=== PATIENT | male | born 1975 | race Caucasian/White ===

== ENCOUNTER 2017-08-19 13:35 | Emergency (ER) | payer OTHER ==
[~2017-08-19] VITALS: Ht 175.3 cm; Wt 86.2 kg
[~2017-08-19 13:35] MED LIST: ALPR.5; ASPI325; ASPI81CH PO; ATEN50; CITA20; METO100ER PO; METO25ER; Norco 10-325 T1 EACH PO; OXYACE5T PO; PARO25 PO; RXTRAM50 PO; SULTRIDS PO; [UNRECOGNIZED DRUG - REMARK]
[2017-08-19] MEDS ORDERED: NAPR500 PO (15:04)
[2017-08-19] MEDS ORDERED: Robaxin500 MG PO (15:04)
== END 2017-08-19 15:14 | disposition home or self-care (01) ==
LOC: ER 13:35
DX: S09.90XA Unspecified injury of head, initial encounter (principal); S20.211A Contusion of right front wall of thorax, initial encounter; F17.210 Nicotine dependence, cigarettes, uncomplicated; Z79.899 Other long term (current) drug therapy; Z79.82 Long term (current) use of aspirin; Z79.1 Long term (current) use of non-steroidal anti-inflammatories (NSAID); Y04.2XXA Assault by strike against or bumped into by another person, initial encounter; Y93.72 Activity, wrestling
CPT/HCPCS: 96372; 99283; J1885

== ENCOUNTER 2023-06-22 15:08 | Emergency (ER) | payer OTHER ==
[~2023-06-22] VITALS: Ht 175.3 cm; Wt 108.9 kg
[~2023-06-22 15:08] MED LIST changes: +NAPR500 PO; +Robaxin500 MG PO
[2023-06-22 15:09] VITALS: BP 142/95
[2023-06-22 15:29] LABS: BASOPHILS ABSOLUTE AUTO 0.04 K/mm3 (0.00-0.23); BASOPHILS PERCENT AUTO 0 % (0-2); EOSINOPHILS ABSOLUTE AUTO 0.05 K/mm3 (0.00-0.68); EOSINOPHILS PERCENT AUTO 0 % (0-6); Hematocrit 47.1 % (37.0-53.0); Hemoglobin 15.9 g/dL (13.5-17.5); IMMATURE GRAN ABSOLUTE AUTO 0.04 K/mm3 (0.00-0.10); IMMATURE GRAN PERCENT AUTO 0 % (0-1); LYMPHOCYTES ABSOLUTE AUTO 2.29 K/mm3 (0.84-5.20); LYMPHOCYTES PERCENT AUTO 19 % (21-46); MONOCYTES ABSOLUTE AUTO 0.58 K/mm3 (0.16-1.47); MONOCYTES PERCENT AUTO 5 % (4-13); Mean Corpuscular HGB 29.7 pg (26.0-34.0); Mean Corpuscular HGB Conc 33.8 g/dL (31.5-36.5); Mean Corpuscular Volume 88 fL (80-100); Mean Platelet Volume 8.4 fL (9.1-12.4); NEUTROPHILS ABSOLUTE AUTO 9.16 K/mm3 (1.96-9.15); NEUTROPHILS PERCENT AUTO 75 % (41-73); Platelet Count 331 K/mm3 (150-400); RDW Coefficient Variation 12.8 % (11.7-14.2); Red Blood Cell Count 5.36 M/mm3 (4.30-5.90); White Blood Cell Count 12.16 K/mm3 (4.00-11.30)
[2023-06-22 15:48] LABS: Albumin, Blood 3.7 g/dL (3.4-5.0); Albumin/Globulin Ratio 0.8 (0.8-1.8); Bilirubin, Total 0.5 mg/dL (0.1-1.0); Bun/Creatinine Ratio 16.8 (12.0-20.0); Calcium, Blood 9.4 mg/dL (8.5-10.1); Creatinine, Blood 1.01 mg/dL (0.60-1.20); Globulin, Blood 4.4 g/dL (2.2-4.0); Potassium, Blood 3.9 mmol/L (3.5-5.5); Total Protein, Blood 8.1 g/dL (6.4-8.2)
== END 2023-06-22 16:29 | disposition home or self-care (01) ==
LOC: ER 15:08
PROVIDERS: Student in an Organized Health Care Education/Training Program
DX: R07.89 Other chest pain (principal); I10 Essential (primary) hypertension; Z91.148 Patient's other noncompliance with medication regimen for other reason; F17.210 Nicotine dependence, cigarettes, uncomplicated
CPT/HCPCS: 71046; 80053; 84484; 85025; 99285-25

== ENCOUNTER 2024-07-27 13:31 | Emergency (ER) | payer OTHER ==
[~2024-07-27] VITALS: Ht 175.3 cm; Wt 84.8 kg
[2024-07-27 14:31] VITALS: BP 124/98
[2024-07-27] MEDS ORDERED: Ketorolac Tromethamine 15mg Vial IM ONE (14:35)
[2024-07-27] MEDS ORDERED: Acetaminophen 500 MG Tab PO ONE (14:35)
[2024-07-27] MEDS ORDERED: Amoxicillin/Clavulanate K 875 MG Tab PO ONE (14:35)
[2024-07-27] MEDS ORDERED: ACET500 PO ×2 (14:36→15:25)
[2024-07-27] MEDS ORDERED: IBUP600 PO ×2 (14:36→15:25)
[2024-07-27] MEDS ORDERED: AMOCLA875 PO ×2 (14:36→15:25)
== END 2024-07-27 15:26 | disposition home or self-care (01) ==
LOC: ER 13:31
DX: K04.7 Periapical abscess without sinus (principal); Z59.89 Other problems related to housing and economic circumstances; F17.210 Nicotine dependence, cigarettes, uncomplicated
CPT/HCPCS: 96372; 99282-25; A9270; J1885

== ENCOUNTER 2024-08-16 16:38 | Emergency (ER) | payer OTHER ==
[~2024-08-16] VITALS: Ht 175.3 cm; Wt 90.7 kg
[~2024-08-16 16:38] MED LIST changes: +ACET500 PO; +AMOCLA875 PO; +IBUP600 PO
[2024-08-16 17:16] VITALS: BP 131/80
[2024-08-16] MEDS ORDERED: IBUP800 PO (18:08)
[2024-08-16] MEDS ORDERED: METPRE4DP PO (18:08)
== END 2024-08-16 18:26 | disposition home or self-care (01) ==
LOC: ER 16:38
DX: M54.10 Radiculopathy, site unspecified (principal); I10 Essential (primary) hypertension; F17.210 Nicotine dependence, cigarettes, uncomplicated; Z79.82 Long term (current) use of aspirin; Z79.899 Other long term (current) drug therapy
CPT/HCPCS: 73030; 99283-25